=== PATIENT | female | born 1935 | race Native Hawaiian/Other Pacific Islander ===

== ENCOUNTER 2016-12-17 15:52 | Emergency (ER) | payer MEDICARE, OTHER ==
[2016-12-17] MEDS ORDERED: TDAP Vaccine 0.5 mL Syr IM ONE (16:01)
[2016-12-17 16:05] VITALS: TEMP 98.1; BMI 33.0
--- NOTE | 2016-12-17 16:27 | ED PDOC ---
Arrival/HPI - General Chief Complaint: Trauma Time Seen by Provider: 12/17/16 15:59 Historian: Patient, Family (Daughter translates) - History of Present Illness Time/Duration: Prior to Arrival Symptom Onset: Sudden Symptom Course: Unchanged Severity Level: Moderate Associated Symptoms (Text): 12/17/16 16:23 Mechanical fall when the patient thought she was on the last step, and actually had one more step to go. She hit her occiput on the corner of a wall causing a laceration. She also injured her left olecranon in the fall. There was no loss of consciousness syncope dizziness or lightheadedness numbness tingling or paresthesias. No neck pain. No low back pain. No chest pain palpitations or dyspnea. No abdominal pain nausea or vomiting. No other extremity trauma. Past Medical History - Cardiac Hx Cardiac Disorders: No - Pulmonary Hx Respiratory Disorders: No - Neurological Hx Neurological Disorder: No - HEENT Hx HEENT Disorder: No - Renal Hx Renal Disorder: No - Endocrine/Metabolic Hx Endocrine Disorders: No - Hematological/Oncological Hx Blood Disorders: No - Integumentary Hx Dermatological Disorder: No - Musculoskeletal/Rheumatological Hx Musculoskeletal Disorders: Yes Other/Comment: RT KNEE REPLACEMENT - Gastrointestinal Hx Gastrointestinal Disorders: No - Genitourinary/Gynecological Hx Genitourinary Disorders: No - Psychiatric Hx Psychophysiologic Disorder: Yes Hx Depression: Yes Hx Substance Use: No Other/Comment: DEMENTIA - Surgical History Hx Orthopedic Surgery: Yes (RT KNEE REPLACEMENT) Other/Comment: COLON RESECTION - Anesthesia Hx Anesthesia: Yes Hx Anesthesia Reactions: No Hx Malignant Hyperthermia: No Family/Social History - Physician Review Nursing Documentation Reviewed: Yes Family/Social History: Unknown Family HX Smoking Status: Never Smoked Hx Alcohol Use: No Hx Substance Use: No Allergies/Home Meds Allergies/Adverse Reactions: Allergies No Known Allergies Allergy (Verified 12/17/16 16:10) Home Medications: Home Meds Medication Instructions Recorded Confirmed Calcium 1 tab PO DAILY 06/11/15 06/11/15 Multivitamin 1 tab PO DAILY 06/11/15 06/11/15 Review of Systems - Physician Review All systems were reviewed & negative as marked: Yes - Review of Systems Constitutional: absent: Fatigue Respiratory: absent: SOB Cardiovascular: absent: Chest Pain, Palpitations, Syncope Gastrointestinal: absent: Abdominal Pain, Vomiting Neurological: Headache. absent: Dizziness, Focal Weakness, Gait Changes, Speech Changes, Facial Droop, Disequilibrium, Seizure Physical Exam Vital Signs Temp Pulse Resp BP Pulse Ox 12/17/16 16:05 98.1 F 78 25 H 114/51 L 96 12/17/16 16:04 98.1 F 78 25 H 114/51 L 96 Temperature: Afebrile Blood Pressure: Normal Pulse: Regular Respiratory Rate: Normal Appearance: Positive for: Well-Appearing, Non-Toxic, Comfortable Pain Distress: None Mental Status: Positive for: other (Awake alert and cooperative) - Systems Exam Head: Present: Normocephalic, Tenderness, Contusion, Swelling, Laceration (3 cm left occipital scalp laceration with foreign body) Pupils: Present: PERRL Extroacular Muscles: Present: EOMI Conjunctiva: Present: Normal Ears: Present: NORMAL TM, Normal Canal. No: Erythema Mouth: Present: Moist Mucous Membranes Pharnyx: No: ERYTHEMA, EXUDATE, TONSILS ENLARGED Neck: Present: Normal Range of Motion. No: MIDLINE TENDERNESS, Paraspinal Tenderness Respiratory/Chest: Present: Clear to Auscultation, Good Air Exchange. No: Respiratory Distress, Accessory Muscle Use Cardiovascular: Present: Regular Rate and Rhythm, Normal S1, S2. No: Murmurs Abdomen: Present: Normal Bowel Sounds. No: Tenderness, Distention, Peritoneal Signs Back: Present: Normal Inspection. No: CVA Tenderness, Midline Tenderness, Paraspinal Tenderness Upper Extremity: Present: Normal ROM, NORMAL PULSES, Tenderness, Other ( Superficial olecranon abrasion with some mild tenderness but full range of motion). No: Normal Inspection, Cyanosis, Edema, Swelling, Erythema, Neurovascularly Intact, Deformity Lower Extremity: Present: Normal Inspection. No: Edema Neurological: Present: GCS=15, CN II-XII Intact, Speech Normal, Motor Func Grossly Intact, Normal Cerebellar Funct, Gait Normal Skin: Present: Warm, Dry, Normal Color, Laceration (3 cm left occipital scalp laceration with a foreign body). No: Rashes Medical Decision Making ED Course and Treatment: 12/17/16 17:02 X-ray left elbow 3 view shows no fracture dislocation or fat pad sign 12/17/16 17:03 Laceration repair. The wound was prepped and draped in usual sterile fashion using Betadine and irrigated with normal saline solution. One percent with local lidocaine anesthesia was injected. A wooden foreign body was removed from the wound. The skin was closed with john. Sterile dressing was applied. Patient tolerated the procedure well. - RAD Interpretation Radiology Orders: 12/17/16 16:01 HEAD W/O CONTRAST [CT] Stat ELBOW LEFT 3 VIEWS ROUTINE [RAD] Stat CT scan of the head as read by the radiologist shows no acute findings Feed Crusher Operator: Radiologist - Medication Orders Current Medication Orders: Discontinued Medications Tetanus/Reduced Diphtheria/Acell Pertussis (Boostrix Vaccine Inj) 0.5 ml IM .ONCE ONE Stop: 12/17/16 16:02 Disposition/Present on Arrival - Present on Arrival Any Indicators Present on Arrival: No History of DVT/PE: No History of Uncontrolled Diabetes: No Urinary Catheter: No History of Decub. Ulcer: No History Surgical Site Infection Following: None - Disposition Have Diagnosis and Disposition been Completed?: Yes Diagnosis: Scalp laceration, Contusion of elbow, left Disposition: HOME/ ROUTINE Disposition Time: 17:05 Patient Plan: Discharge Condition: IMPROVED Discharge Instructions (ExitCare): Laceration (ED), Contusion in Adults (ED), Abrasion (ED), Head Injury (ED) Additional Instructions: Dry for 2 days. Wound check in 2 days. Staple removal in 10 days. Follow-up with PMD. Follow up in ER as needed.
--- NOTE | 2016-12-17 16:36 | CT ---
PROCEDURE: CT HEAD WITHOUT CONTRAST. HISTORY: trauma COMPARISON: None available. TECHNIQUE: Axial computed tomography images were obtained through the head/brain without intravenous contrast. Radiation dose: Total exam DLP = 779.14 MGy-cm. FINDINGS: HEMORRHAGE: No intracranial hemorrhage. BRAIN: Diffuse atrophy with prominence of the ventricles and sulci noted. No mass effect or edema. Mild scattered white matter hypodensities, which are nonspecific, but often seen with chronic microvascular ischemic disease. Please note that MRI with diffusion imaging is more sensitive in the detection of acute ischemic event. VENTRICLES: No hydrocephalus. CALVARIUM: Unremarkable. PARANASAL SINUSES: Extensive mucosal thickening of the left maxillary sinus. The remainder the visualized paranasal sinuses appear clear. MASTOID AIR CELLS: Unremarkable as visualized. No inflammatory changes. OTHER FINDINGS: Left scalp hematoma. IMPRESSION: Left scalp hematoma. Extensive mucosal thickening of the left maxillary sinus. Correlate clinically for sinusitis.
--- NOTE | 2016-12-17 16:54 | RAD ---
PROCEDURE: Radiographs of the left elbow. HISTORY: trauma COMPARISON: None available. FINDINGS: BONES: No acute displaced fracture. JOINTS: No dislocation. SOFT TISSUES: Unremarkable. No evidence of radiopaque foreign body. JOINT EFFUSION: No significant joint effusion. OTHER FINDINGS: None IMPRESSION: No acute displaced fracture, dislocation, or significant joint effusion identified. If high clinical index of suspicion, suggest cross-sectional imaging. Otherwise if symptoms persist, or if there is continued clinical concern, x-ray follow-up in 7-10 days should be considered.
[2016-12-17 17:19] VITALS: PULSE 73; RESP 20; O2SAT 98
[2016-12-17 17:20] VITALS: BP 146/78
== END 2016-12-17 17:25 | disposition home or self-care (01) ==
LOC: ED 15:52
DX: S01.01XA Laceration without foreign body of scalp, initial encounter (principal); S50.02XA Contusion of left elbow, initial encounter; W10.9XXA Fall (on) (from) unspecified stairs and steps, initial encounter; Z23 Encounter for immunization

== ENCOUNTER 2016-12-27 10:11 | Emergency (ER) | payer MEDICARE, OTHER ==
[2016-12-27 10:14] VITALS: BMI 32.1
[2016-12-27 10:17] VITALS: BP 128/63; PULSE 85; RESP 16; TEMP 98; O2SAT 95
--- NOTE | 2016-12-27 10:29 | ED PDOC ---
Arrival/HPI - General Chief Complaint: Suture/Staple Removal Time Seen by Provider: 12/27/16 10:23 Historian: Patient, Family - History of Present Illness Narrative History of Present Illness (Text): 12/27/16 10:24 81 y/o female, here for the staple removal x 10 days. Pt. has no pain or discomfort, no headache or dizziness, no night sweat, no numbness or tingling, no other medical or psychological complaints. Past Medical History - Provider Review Nursing Documentation Reviewed: Yes - Cardiac Hx Cardiac Disorders: No - Pulmonary Hx Respiratory Disorders: No - Neurological Hx Neurological Disorder: No - HEENT Hx HEENT Disorder: No - Renal Hx Renal Disorder: No - Endocrine/Metabolic Hx Endocrine Disorders: No - Hematological/Oncological Hx Blood Disorders: No - Integumentary Hx Dermatological Disorder: No - Musculoskeletal/Rheumatological Hx Musculoskeletal Disorders: Yes Other/Comment: RT KNEE REPLACEMENT - Gastrointestinal Hx Gastrointestinal Disorders: No - Genitourinary/Gynecological Hx Genitourinary Disorders: No - Psychiatric Hx Psychophysiologic Disorder: Yes Hx Depression: Yes Hx Substance Use: No Other/Comment: DEMENTIA - Surgical History Hx Orthopedic Surgery: Yes (RT KNEE REPLACEMENT) Other/Comment: COLON RESECTION - Anesthesia Hx Anesthesia: Yes Hx Anesthesia Reactions: No Hx Malignant Hyperthermia: No Family/Social History - Physician Review Nursing Documentation Reviewed: Yes Family/Social History: Unknown Family HX Smoking Status: Never Smoked Hx Alcohol Use: No Hx Substance Use: No Allergies/Home Meds Allergies/Adverse Reactions: Allergies No Known Allergies Allergy (Verified 12/27/16 10:14) Home Medications: Home Meds Medication Instructions Recorded Confirmed No Known Home Med 12/27/16 12/27/16 Review of Systems - Review of Systems Constitutional: absent: Fatigue, Fevers Eyes: absent: Vision Changes ENT: absent: Hearing Changes Cardiovascular: absent: Chest Pain Gastrointestinal: absent: Abdominal Pain, Nausea, Vomiting Skin: absent: Rash, Pruritis, Skin Lesions, Abscess, Ulcer, Cellulitis Neurological: absent: Headache, Dizziness, Focal Weakness, Gait Changes, Speech Changes, Facial Droop, Disequilibrium, Seizure Physical Exam Vital Signs Reviewed: Yes Vital Signs Temp Pulse Resp BP Pulse Ox 12/27/16 10:12 98.0 F 85 16 128/63 95 Temperature: Afebrile Blood Pressure: Normal Pulse: Regular Respiratory Rate: Normal Appearance: Positive for: Well-Appearing, Non-Toxic, Comfortable Pain Distress: None Mental Status: Positive for: Alert and Oriented X 3 - Systems Exam Head: Present: Laceration (visible lt posterior occipital with 6 staple wound with completely healed and scar. ) Pupils: Present: PERRL Extroacular Muscles: Present: EOMI Conjunctiva: Present: Normal Ears: Present: NORMAL TM, Normal Canal. No: Erythema Cardiovascular: Present: Regular Rate and Rhythm, Normal S1, S2. No: Murmurs Abdomen: Present: Normal Bowel Sounds. No: Tenderness, Distention, Peritoneal Signs Neurological: Present: GCS=15, Speech Normal, Motor Func Grossly Intact, Gait Normal, Memory Normal Medical Decision Making ED Course and Treatment: 12/27/16 10:30 6 john removed with success, checked and no further staple noted. Discharge home with education on follow up with your own pmd within 2 days, return to ER for any new or worsening signs or symptoms. - PA / UPPER STITCHER / Resident Statement MD/DO has reviewed & agrees with the documentation as recorded. Disposition/Present on Arrival - Present on Arrival Any Indicators Present on Arrival: No History of DVT/PE: No History of Uncontrolled Diabetes: No Urinary Catheter: No History of Decub. Ulcer: No History Surgical Site Infection Following: None - Disposition Have Diagnosis and Disposition been Completed?: Yes Diagnosis: Removal of john Disposition: HOME/ ROUTINE Disposition Time: 10:31 Patient Plan: Discharge Condition: GOOD Additional Instructions: Discharge home with education on follow up with your own pmd within 2 days, return to ER for any new or worsening signs or symptoms. Referrals: [facility] at [facility] [Outside] - Follow up with primary
== END 2016-12-27 11:09 | disposition home or self-care (01) ==
LOC: ED 10:11
DX: Z48.02 Encounter for removal of sutures (principal)

== ENCOUNTER 2017-04-23 10:09 | Observation (INO) | payer MEDICARE, OTHER ==
[2017-04-23 11:06] LABS: BASO # 0.02 K/mm3 (0.0-2.0); BASO % 0.3 % (0.0-3.0); EOS # 0.3 (0.0-0.7); EOS % 4.6 % (1.5-5.0); GRAN # 4.09 (1.4-6.5); GRAN % 57.4 % (50.0-68.0); HEMOGLOBIN 13.7 gm/dL (12.0-16.0); LYMPH # 2.3 (1.2-3.4); LYMPH % 32.4 % (22.0-35.0); MEAN CELL VOLUME 93.6 fL (80.0-105.0); MEAN CORPUSCULAR HEMOGLOBIN 31.2 pg (25.0-35.0); MEAN CORPUSCULAR HGB CONC 33.3 g/dl (31.0-37.0); MEAN PLATELET VOLUME 9.8 fl (7.0-11.0); MONO # 0.4 (0.1-0.6); MONO % 5.3 % (1.0-6.0); PLATELET COUNT 301 10^3/uL (120.0-450.0); RBC 4.39 10^6/uL (3.5-6.1); RED CELL DISTRIBUTION WIDTH 12.7 % (11.5-14.5); WHITE BLOOD COUNT 7.1 10^3/ul (4.5-11.0)
[2017-04-23 11:19] LABS: INR 1.01 (0.93-1.08); PARTIAL THROMBOPLASTIN TIME 32.6 Seconds (23.7-30.8); PROTHROMBIN TIME 10.9 Seconds (9.9-11.8)
[2017-04-23 11:21] LABS: ALB/GLOB RATIO 1.1 (1.1-1.8); ALBUMIN 4.4 g/dL (3.0-4.8); ALT/SGPT 20 U/L (7-56); AST/SGOT 27 U/L (15-39); BLOOD UREA NITROGEN 16 mg/dL (7-21); GFR AFRICAN-AMERICAN > 60; GFR NON-AFRICAN AMERICAN > 60
[2017-04-23 11:33] LABS: TROPONIN I < 0.01 ng/mL
--- NOTE | 2017-04-23 11:53 | RAD ---
HISTORY: dizziness COMPARISON: No prior. FINDINGS: LUNGS: No active pulmonary disease. PLEURA: No significant pleural effusion identified, no pneumothorax apparent. CARDIOVASCULAR: Normal. OSSEOUS STRUCTURES: No significant abnormalities. VISUALIZED UPPER ABDOMEN: Normal. OTHER FINDINGS: None. IMPRESSION: No active disease.
[2017-04-23 13:18] LABS: PH,URINE 6.5 (4.7-8.0); URINE BILIRUBIN NEGATIVE (NEGATIVE); URINE BLOOD NEGATIVE (NEGATIVE); URINE GLUCOSE (UA) NEGATIVE (NEGATIVE); URINE LEUKOCYTE ESTERASE TRACE Leu/uL (NEGATIVE); URINE NITRATE NEGATIVE (NEGATIVE); URINE PROTEIN NEGATIVE mg/dL (<30 mg/dL); URINE UROBILINOGEN 0.2 E.U./dL (<1 E.U./dL)
[2017-04-23 13:25] LABS: URINE APPEARANCE CLEAR (CLEAR); URINE BACTERIA TRACE (NEG); URINE COLOR YELLOW (YELLOW); URINE EPITHELIAL CELLS 0 - 2 /hpf (0-5); URINE RBC 0 - 2 /hpf (0-2)
--- NOTE | 2017-04-23 15:07 | CT ---
PROCEDURE: CT HEAD WITHOUT CONTRAST. HISTORY: headache, htn COMPARISON: 12/17/2016 TECHNIQUE: Axial computed tomography images were obtained through the head/brain without intravenous contrast. Radiation dose: Total exam DLP = 725.84 mGy-cm. This CT exam was performed using one or more of the following dose reduction techniques: Automated exposure control, adjustment of the mA and/or kV according to patient size, and/or use of iterative reconstruction technique. FINDINGS: HEMORRHAGE: No intracranial hemorrhage. BRAIN: No mass effect or edema. Mild to moderate diffuse atrophy consistent with patient age. Mild periventricular white matter microvascular ischemic change. No evidence of acute infarct. VENTRICLES: Unremarkable. No hydrocephalus. CALVARIUM: Unremarkable. PARANASAL SINUSES: Minimal left maxillary mucoperiosteal thickening. Only a small portion of the maxillary sinuses are included in this examination MASTOID AIR CELLS: Unremarkable as visualized. No inflammatory changes. OTHER FINDINGS: None. IMPRESSION: No intracranial mass, hemorrhage or evidence of acute infarct. Minimal chronic left maxillary sinusitis.
--- NOTE | 2017-04-23 16:08 | ED PDOC ---
Arrival/HPI - General Chief Complaint: Medical Clearance Time Seen by Provider: 04/23/17 10:28 Historian: Patient, Family - History of Present Illness Narrative History of Present Illness (Text): 04/23/17 16:05 Patient is a 81 yo female, denies past medical history of hypertension, presents to ED from local clinic reportedly with "abnormal EKG" as well as episodes of headaches and dizziness over the past several weeks. Family present and translates. They state for the past several morning patient awakes and feels very lightheaded, dizzy with gait instability, sensation that she may fall or pass out. Family states this has progressively worsened and brought her to clinic earlier in week where she was found to be hypertensive, although patient not medicated reportedly as she felt better at the time. She presented to clinic this AM again for episode of unsteadiness, reportedly SBP was "in 190s " and she was unsteady. Patient denies chest pain or shortness of breath or palpitations. She does have an associated frontal headache, but not the worst in her life. No fever. No cough. No abdominal pain. Normal appetite. No change in medications. Time/Duration: 1 week Symptom Onset: Gradual Symptom Course: Intermittent Past Medical History - Infectious Disease Hx of Infectious Diseases: None - Reproductive Menopause: Yes - Cardiac Hx Cardiac Disorders: No - Pulmonary Hx Respiratory Disorders: No - Neurological Hx Neurological Disorder: No - HEENT Hx HEENT Disorder: No - Renal Hx Renal Disorder: No - Endocrine/Metabolic Hx Endocrine Disorders: No - Hematological/Oncological Hx Blood Disorders: No - Integumentary Hx Dermatological Disorder: No - Musculoskeletal/Rheumatological Hx Musculoskeletal Disorders: Yes Other/Comment: RT KNEE REPLACEMENT - Gastrointestinal Hx Gastrointestinal Disorders: Yes Other/Comment: colon ca had chemo 5 yrs ago - Genitourinary/Gynecological Hx Genitourinary Disorders: No - Psychiatric Hx Psychophysiologic Disorder: Yes Hx Depression: Yes Hx Substance Use: No Other/Comment: DEMENTIA - Surgical History Hx Orthopedic Surgery: Yes (RT KNEE REPLACEMENT) Other/Comment: COLON RESECTION - Anesthesia Hx Anesthesia: Yes Hx Anesthesia Reactions: No Hx Malignant Hyperthermia: No Family/Social History Family/Social History: Unknown Family HX Smoking Status: Never Smoked Hx Alcohol Use: No Hx Substance Use: No Allergies/Home Meds Allergies/Adverse Reactions: Allergies No Known Allergies Allergy (Verified 12/27/16 10:14) Home Medications: Home Meds Medication Instructions Recorded Confirmed Omeg3/Calcium/D3/Folic/Mvit 13 1 tab PO HS 04/23/17 04/23/17 [Advanced Am/Pm Combo Pack] Review of Systems - Review of Systems Systems not reviewed;Unavailable: Language Barrier (daughter present translates in Mandarin with permission) Constitutional: absent: Fevers Eyes: absent: Vision Changes ENT: absent: Hearing Changes Respiratory: absent: SOB, Cough Cardiovascular: Other (near syncope). absent: Chest Pain, Palpitations, Edema Gastrointestinal: absent: Abdominal Pain, Nausea, Vomiting Genitourinary Female: absent: Dysuria Musculoskeletal: absent: Back Pain, Neck Pain Skin: absent: Rash Neurological: Headache, Dizziness, Gait Changes, Disequilibrium. absent: Focal Weakness, Seizure Endocrine: absent: Polyuria Hemo/Lymphatic: absent: Easy Bleeding Psychiatric: absent: Depression Physical Exam Vital Signs Reviewed: Yes Vital Signs Pulse Resp BP Pulse Ox 04/23/17 15:22 72 16 155/74 H 96 04/23/17 13:16 71 16 151/65 H 97 04/23/17 12:39 72 16 179/88 H 97 04/23/17 10:30 186/81 H Temperature: Afebrile Blood Pressure: Hypertensive Appearance: Positive for: Well-Appearing, Non-Toxic Pain Distress: Moderate Mental Status: Positive for: Alert and Oriented X 3 Finger Stick Blood Glucose: 107 - Systems Exam Head: Present: Atraumatic Pupils: Present: PERRL Extroacular Muscles: Present: EOMI Mouth: Present: Moist Mucous Membranes Pharnyx: No: ERYTHEMA Nose (Internal): Present: Normal Inspection Neck: Present: Normal Range of Motion. No: Meningeal Signs Respiratory/Chest: Present: Clear to Auscultation. No: Respiratory Distress Cardiovascular: Present: Regular Rate and Rhythm, Murmurs Abdomen: No: Tenderness, Distention Back: No: CVA Tenderness Upper Extremity: No: Cyanosis, Edema Lower Extremity: Present: Edema, NORMAL PULSES, Neurovascularly Intact. No: CALF TENDERNESS Neurological: Present: Speech Normal, Motor Func Grossly Intact, Normal Sensory Function. No: Gait Normal Skin: Present: Warm Psychiatric: Present: Alert Medical Decision Making ED Course and Treatment: 04/23/17 16:12 Patient's history supplemented by family who translates. Patient sent by clinic for "abnormal EKG", although review of previous available records reveal right bundle branch block has been noted previously, and she has no chest pain or shortness of breath. She is hypertensive on arrival to ED, but no facial droop or focal motor or sensory deficits. Family and patient deny any known prior history of hypertension, she does not take meds. CT head obtained for intermittent headaches and dizziness, ct head unremarkable as per radiologist. With observation, patient's blood pressure improved to SBP 150s, patient's headache and dizziness improved. Family reports worsening episodes for past several weeks, plan to admit for BP monitoring as well as cardiac and neurological consultation for episodes of unsteadiness and near syncope. Treatment plan reviewed with patient and family, agreeable to plan. Dr. Luna covering for patient's states PMD Dr. Mendoza. - Lab Interpretations Lab Results: 04/23/17 11:00 04/23/17 11:00 Lab Results 04/23/17 13:12: Urine Color Yellow, Urine Appearance Clear, Urine pH 6.5, Ur Specific [place] 1.020, Urine Protein Negative, Urine Glucose (UA) Negative, Urine Ketones Negative, Urine Blood Negative, Urine Nitrate Negative, Urine Bilirubin Negative, Urine Urobilinogen 0.2, Ur Leukocyte Esterase Trace H, Urine RBC 0 - 2, Urine WBC 1 - 3, Ur Epithelial Cells 0 - 2, Urine Bacteria Trace 04/23/17 11:00: Sodium 142, Potassium 4.0, Chloride 106, Carbon Dioxide 25, Anion Gap 15, BUN 16, Creatinine 0.7, Est GFR ( Amer) > 60, Est GFR (Non- Af Amer) > 60, Random Glucose 92, Calcium 10.0, Total Bilirubin 0.7, AST 27, ALT 20, Alkaline Phosphatase 105, Lactate Dehydrogenase 517, Total Creatine Kinase 46, Troponin I < 0.01, Total Protein 8.2, Albumin 4.4, Globulin 3.9, Albumin/Globulin Ratio 1.1 04/23/17 11:00: PT 10.9, INR 1.01, APTT 32.6 H 04/23/17 11:00: WBC 7.1, RBC 4.39, Hgb 13.7, Hct 41.1, MCV 93.6, MCH 31.2, MCHC 33.3, RDW 12.7, Plt Count 301, MPV 9.8, Gran % 57.4, Lymph % (Auto) 32.4, [place] % (Auto) 5.3, Eos % (Auto) 4.6, Baso % (Auto) 0.3, Gran # 4.09, Lymph # 2.3, [place] # 0.4, Eos # 0.3, Baso # 0.02 04/23/17 10:56: POC Glucose (mg/dL) 107 - RAD Interpretation Radiology Orders: 04/23/17 10:29 CHEST PORTABLE [RAD] Stat 04/23/17 12:33 HEAD W/O CONTRAST [CT] Stat Certified Phlebotomy Technician: Radiologist - EKG Interpretation EKG Interpretation (Text): 04/23/17 16:11 EKG at 10:17 reveals normal sinus rhythm rate of 65 with right bundle branch block THIS EKG similar to EKG obtained on 08/31/2015 Interpreted by ED Physician: Yes Type: 12 lead EKG - Medication Orders Current Medication Orders: Meclizine HCl (Antivert) 25 mg PO ONCE ONE Stop: 04/23/17 16:01 Disposition/Present on Arrival - Present on Arrival Any Indicators Present on Arrival: No History of DVT/PE: No History of Uncontrolled Diabetes: No Urinary Catheter: No History of Decub. Ulcer: No History Surgical Site Infection Following: None - Disposition Have Diagnosis and Disposition been Completed?: Yes Diagnosis: Near syncope, Hypertension Disposition: HOSPITALIZED Disposition Time: 14:00 Patient Plan: Admission, Observation, Telemetry Condition: FAIR
[2017-04-23 18:07] VITALS: BMI 34.0
--- NOTE | 2017-04-23 22:30 | CARD ---
APPROVED REPORT EKG Measurement Heart [id number] <Conclusion> Normal sinus rhythm Right bundle branch block Inferior infarct, age undetermined Abnormal ECG
[2017-04-24 00:07] VITALS: O2SAT 96
--- NOTE | 2017-04-24 08:59 | CP.PCM.CON ---
<Michael Boland - Last Filed: 04/24/17 08:49> History of Present Illness - History of Present Illness History of Present Illness: This is a 81 year old female with PMHx colon cancer s/p chemotherapy and hemicolectomy who comes into the ED complaining of headaches and dizziness for the past few weeks. History taken from daughter at bedside since patient speaks only Mandarin. Patient is known to have headaches intermittently when her blood pressure is elevated. Her baseline SBP runs in the 110s. Over the course of the past week, patient has been intermittently hypertensive as evidenced by blood pressures taken at home and at an urgent care clinic. When the urgent care clinic found her SBP to be in the 190s, they advised the patient to come into the hospital. Patient has been complaining of frontal headaches that "feel like she's wearing a hat" with scintillating scotomas. With these episodes of transient hypertension, patient also feels dizzy and unsteady but denies feeling that the room is spinning. As patient's BP improved overnight, her headache and dizziness have gradually decreased in severity. This morning the patient only complains of slight dizziness. Of note, the patient had a fall about 3 weeks ago and went to the urgent care clinic where on Xray was found to have injuries to several lumbar vertebrae. Since the injury she has had intermittent episodes of low back pain with radiation down the right leg. At the time of encounter, patient was not currently in pain or experiencing paresthesias. PMHx: Colon cancer s/p chemotherapy and hemicolectomy 5 years ago PSHx: Hemicolectomy and right TKA Allergies: NKDA Social: Denies tobacco, alcohol, drugs. Home meds: Denies. Only takes vitamin supplements. Review of Systems - Constitutional Constitutional: absent: Headache, Weakness - EENT Eyes: absent: Change in Vision Ears: absent: Decreased Hearing - Cardiovascular Cardiovascular: absent: Chest Pain - Respiratory Respiratory: absent: Dyspnea - Gastrointestinal Gastrointestinal: absent: Abdominal Pain, Nausea, Vomiting - Genitourinary Genitourinary: absent: Dysuria - Musculoskeletal Musculoskeletal: absent: Back Pain - Neurological Neurological: Dizziness. absent: Numbness, Headaches, Tingling, Vertigo, Weakness - Endocrine Endocrine: absent: Palpitations Past Patient History - Infectious Disease Hx of Infectious Diseases: None - Past Medical History & Family History Past Medical History?: Yes - Past Social History Smoking Status: Never Smoked - CARDIAC Hx Cardiac Disorders: No - PULMONARY Hx Respiratory Disorders: No - NEUROLOGICAL Hx Neurological Disorder: No - HEENT Hx HEENT Problems: No - RENAL Hx Chronic Kidney Disease: No - ENDOCRINE/METABOLIC Hx Endocrine Disorders: No - HEMATOLOGICAL/ONCOLOGICAL Hx Blood Disorders: No - INTEGUMENTARY Hx Dermatological Problems: No - MUSCULOSKELETAL/RHEUMATOLOGICAL Hx Falls: Yes - GASTROINTESTINAL Hx Gastrointestinal Disorders: Yes Other/Comment: colon ca had chemo 5 yrs ago - GENITOURINARY/GYNECOLOGICAL Hx Genitourinary Disorders: No - PSYCHIATRIC Hx Psychophysiologic Disorder: Yes Hx Depression: Yes Other/Comment: DEMENTIA - SURGICAL HISTORY Hx Orthopedic Surgery: Yes (RT KNEE REPLACEMENT) Other/Comment: COLON RESECTION - ANESTHESIA Hx Anesthesia: Yes Hx Anesthesia Reactions: No Hx Malignant Hyperthermia: No Meds Allergies/Adverse Reactions: Allergies Allergy/AdvReac Type Severity Reaction Status Date / Time No Known Allergies Allergy Verified 12/27/16 10:14 - Medications Medications: Current Medications Amoxicillin/Clavulanate Potassium (Augmentin 500 Mg-125 Mg Tab) 1 tab PO BID NINA PRN Reason: Protocol Physical Exam - Constitutional Appears: Non-toxic, No Acute Distress - Head Exam Head Exam: ATRAUMATIC, NORMAL INSPECTION, NORMOCEPHALIC - Eye Exam Eye Exam: EOMI, PERRL - ENT Exam ENT Exam: Mucous Membranes Moist - Respiratory Exam Respiratory Exam: Clear to Auscultation Bilateral - Cardiovascular Exam Cardiovascular Exam: REGULAR RHYTHM - GI/Abdominal Exam GI & Abdominal Exam: Normal Bowel Sounds - Neurological Exam Neurological exam: Alert, CN II-XII Intact, Oriented x3, Reflexes Normal Additional comments: Manual muscle strength testing 5/5 bilateral upper and lower extremities. Sensation to light touch intact bilateral uper and lower extremities. No pronator drift. Down going plantar responses. Normal finger to nose test. Patient with difficulty following directions at times. Results - Vital Signs Recent Vital Signs: Last Vital Signs Temp 98.5 F 04/24/17 06:00 Pulse 71 04/24/17 06:00 Resp 20 04/24/17 06:00 BP 138/80 04/24/17 06:00 Pulse Ox 96 04/24/17 06:00 - Labs Result Diagrams: 04/23/17 11:00 04/23/17 11:00 Assessment & Plan - Assessment and Plan (Free Text) Assessment: This is a 81 year old female with PMHx colon cancer s/p chemotherapy and hemicolectomy who comes into the ED complaining of headaches and dizziness for the past few weeks. The headaches and dizziness were likely due to episodes of hypertensive urgency. CT Head was negative for acute ischemic or hemorrhagic changes. Plan: 1) Avoid hypertensive and hypotensive episodes 2) Maintain SBP 130-140 mmHg. 3) Maintain adequate hydration. 4) Monitor and correct electrolytes. 5) Avoid sedating medications. 6) Follow up MRI brain 7) Follow up carotid ultrasound Patient is neurologically stable. Will discuss case with Dr. Brenna Boland, PGY-1 - Date & Time Date: 04/24/17 Time: 07:30 <Cody Ceja - Last Filed: 04/24/17 10:09> Meds - Medications Medications: Current Medications Amoxicillin/Clavulanate Potassium (Augmentin 500 Mg-125 Mg Tab) 1 tab PO BID NINA PRN Reason: Protocol Results - Vital Signs Recent Vital Signs: Last Vital Signs Temp 98.5 F 04/24/17 06:00 Pulse 71 04/24/17 06:00 Resp 20 04/24/17 06:00 BP 138/80 04/24/17 06:00 Pulse Ox 96 04/24/17 06:00 - Labs Result Diagrams: 04/23/17 11:00 04/24/17 09:00 Labs: Laboratory Results - last 24 hr 04/24/17 09:00 Sodium 143 Potassium 4.2 Chloride 103 Carbon Dioxide 30 Anion Gap 14 BUN 14 Creatinine 0.8 Est GFR ( Amer) > 60 Est GFR (Non-Af Amer) > 60 Random Glucose 138 H Calcium 10.3 Total Bilirubin 0.7 AST 31 ALT 30 Alkaline Phosphatase 91 Total Protein 8.3 Albumin 4.4 Globulin 3.9 Albumin/Globulin Ratio 1.1 Attending/Attestation - Attestation I have personally seen and examined this patient.: Yes I have fully participated in the care of the patient.: Yes I have reviewed all pertinent clinical information: Yes
[2017-04-24 09:52] LABS: ALB/GLOB RATIO 1.1 (1.1-1.8); ALBUMIN 4.4 g/dL (3.0-4.8); ALT/SGPT 30 U/L (7-56); AST/SGOT 31 U/L (15-39); BLOOD UREA NITROGEN 14 mg/dL (7-21); CALCIUM 10.3 mg/dL (8.4-10.5); GFR AFRICAN-AMERICAN > 60; GFR NON-AFRICAN AMERICAN > 60
[2017-04-24] MEDS: Amoxicillin-Clav 500-125 mg Tab PO SCH ×2 (10:30→17:30)
--- NOTE | 2017-04-24 11:36 | US ---
PROCEDURE: Bilateral carotid artery duplex ultrasound HISTORY: Carotid stenosis dizziness PHYSICIAN(S): Fede Nichols MD. TECHNIQUE: Duplex sonography and color-flow Doppler were used to evaluate the carotid bifurcations and limited segments of the vertebral arteries bilaterally. FINDINGS: There is mild smooth hypoechoic plaque noted at the carotid bifurcations bilaterally. The peak systolic velocity in the proximal right internal carotid artery is 63 cm/sec. This corresponds to a 20 to 39% proximal right ICA stenosis. Normal systolic velocities are noted in the proximal right external carotid artery. There is antegrade flow in the right vertebral artery. The peak systolic velocity in the proximal left internal carotid artery is 60 cm/sec. This corresponds to a 20 to 39% proximal left ICA stenosis. Normal systolic velocities are noted in the proximal left external carotid artery. There is antegrade flow in the left vertebral artery. IMPRESSION: 1. Bilateral 20-39% proximal ICA stenoses. 2. Antegrade flow in both vertebral arteries.
[2017-04-24 12:48] VITALS: BP 128/74; PULSE 75; RESP 16; TEMP 97.9
--- NOTE | 2017-04-24 13:46 | CON ---
DATE: 04/24/2017 HISTORY OF PRESENT ILLNESS: The patient is a 81-year-old woman who presents with dizziness and near syncope. PAST MEDICAL HISTORY: Free of cardiac history. She was noted to have a transient elevated blood pressure but since being monitored has been stable in the hospital. The patient complains of intermittent dizziness and occasional weakness. No diabetes mellitus. No hypertension. MEDICATIONS: The patient is on no significant medications at home. SOCIAL HISTORY: The patient does not smoke. REVIEW OF SYSTEMS: Fourteen-point review of systems was reviewed in detail. No cardiac symptomatology is noted. PHYSICAL EXAMINATION: VITAL SIGNS: Blood pressure is 138/80, the heart rate in the 60s. NECK: Negative JVD. LUNGS: Without rales. HEART: S1 and S2. EXTREMITIES: Without edema. The EKG shows a right bundle-branch block, normal sinus rhythm. Hemoglobin is 13.7. Chemistries showed troponins that are negative. IMPRESSION: 1. Near syncope. 2. Dizziness. 3. Transient hypertension. 4. Weakness. Given these findings, I have discussed this with the patient as well as the daughter by telephone. At this point, there is no antihypertensive medications that are necessary. If cleared with neurology, the patient can be discharged from a cardiac perspective. We will arrange for an outpatient stress test and echocardiogram. I have discussed this with the patient and family. Fede Verde MD
--- NOTE | 2017-04-24 21:10 | HP ---
HISTORY OF PRESENT ILLNESS: I saw her resting comfortably in bed this morning with family present. She has a history of dizziness status post fall, went to [facility], was told she had fractured vertebrae. She has been doing okay, but the blood pressure has been high at home then she got dizzy and they brought her to the emergency room. This is a 81-year-old female with past medical history of hypertension, not on any medication, comes in with some dizziness and headaches, high blood pressure at home, was seen by [facility] couple of weeks ago for fall and was told she had fractured ribs, but no real back pain. She is walking well. No chest paint, no shortness of breath, or abdominal pain at this time. PAST MEDICAL HISTORY: Menopause. She had a right knee replacement, colon cancer, had chemo five years ago, questionable history of dementia. depression, right knee replacement, and colon resection. FAMILY HISTORY: Unknown family history. SOCIAL HISTORY: She never smoked. No alcohol. No drugs. ALLERGIES: NO KNOWN DRUG ALLERGIES. MEDICATION: She takes vitamin, Minier 3, multivitamin pill and no blood pressure medications presently. REVIEW OF SYSTEMS: No vision changes. No hearing changes. No sore throat, No neck pain. No chest pain. No palpitation. No shortness of breath. No coughing. No nausea, vomiting, constipation or diarrhea. No back pain at this time even no neck pain. No problems urinating. Skin; no rashes or ulcers or redness or lesions, There was a little bit of headache and dizziness, but that is better. There was disequilibrium, that is better. No focal problems at this time. No seizures. No problems urinating. At this time, not depressed, not anxious, no easy bleeding, comfortable. PHYSICAL EXAMINATION VITAL SIGNS: She has a 72 pulse, 16 respiratory rate, blood pressure down to 130/78,97% O2 sat on room air. HEENT: Head is atraumatic and normocephalic. She is well appearing, nontoxic. Alert and oriented x3. Extraocular muscles are intact. Pupils are reactive to light. Throat is clear, moist. No erythema. NECK: Supple. No JVD. HEART: Regular rate. LUNGS: Decreased breath sounds. Clear to auscultation. No wheezes, rhonchi, or rales. ABDOMEN: Soft and nontender. Positive bowel sounds. No guarding. No rebound. No CVA tenderness. EXTREMITIES: No edema. NEUROLOGIC: She is intact. Cranial nerves II though XII intact. Normal speech. SKIN: Warm and dry. THYROID: Midline. No palpable appreciated lymphadenopathy. She is alert and comfortably family is very concerned that she might have a bleed in the brain that was happened to the son-in-law's mother. LABORATORY DATA: We have a urine that is clear, trace leukocytes. 142 sodium, potassium 4, BUN 16, creatinine 0.7. GFR is greater than 60, sugar is 92, calcium 10, total bilirubin 0.7, AST is 27 and ALT is 20, alkaline phosphatase 105, lactate dehydrogenase is 517, troponin is less than 0.01. Total protein is 8.2, albumin is 4.4, globulin 3.9, INR is 1.01, She has a 7.1 white count, 13.7 hemoglobin, 41.1 hematocrit and 301 platelets. ASSESSMENT AND PLANT: She had a CAT scan of the head, which showed no intracranial mass, hemorrhage, or evidence of acute infarct and little more chronic left back sinusitis. She had a chest x-ray and EKG. EKG showed normal sinus rhythm, right bundle branch block inferior infarct, age undetermined. She had a chest x-ray with no active disease. I called in a consult for Neurology for their opinion. I put in order for carotid and vertebral ultrasounds and MRI of the brain and security and privacy consultant, physical therapy and Augmentin for the sinusitis. well. I put a discharge in for 3 o'clock this afternoon, hopefully the MRI, the ultrasound will be okay. The blood pressure stayed fine. She will have a consult with neuro and cardio and hopefully she is okay and clinically she is improved and hopefully, she will be discharged today this afternoon with these tests done. She is on observation status, She is here for dizziness, hypertension and sinusitis. I discussed with the family at length. Rigoberto Mendoza DO [facility]ITAL[facility]evae[facility]
== END 2017-04-24 18:55 | disposition home or self-care (01) ==
LOC: ED 10:09 → ERH 16:16 → 2RNO 17:42
PROVIDERS: ADMIT Family Medicine; ATTEND Family Medicine
DX: I10 Essential (primary) hypertension (principal); R55 Syncope and collapse; F03.90 Unspecified dementia, unspecified severity, without behavioral disturbance, psychotic disturbance, mood disturbance, and anxiety; R53.1 Weakness; R42 Dizziness and giddiness; J32.9 Chronic sinusitis, unspecified; Z85.038 Personal history of other malignant neoplasm of large intestine; Z92.21 Personal history of antineoplastic chemotherapy; Z96.651 Presence of right artificial knee joint; Z90.49 Acquired absence of other specified parts of digestive tract
CPT/HCPCS: 36415; 70450; 71010; 80053; 81001; 82550; 82948; 83615; 84484; 85025; 85610; 85730; 87086; 93005; 93880; 97116; 97162; 99285; G0378; G8978; G8979; G8980

== ENCOUNTER 2017-05-08 17:17 | Observation (INO) | payer MEDICARE, OTHER ==
--- NOTE | 2017-05-08 18:12 | ED PDOC ---
Arrival/HPI - General Chief Complaint: High Blood Pressure Time Seen by Provider: 05/08/17 17:46 Historian: Patient - History of Present Illness Narrative History of Present Illness (Text): 05/08/17 18:09 81 y/o female, pmh including htn, nkda, c/o dizziness/nausea/headache s/p woke up this morning around 4-5am with no fall or trauma. Pt. stated that she was feeling well prior to the sleep last night, woke up this morning around 4-5am with the dizziness along with nausea and headache, feeling like about to pass out, no change in vision, no vomiting, no chest pain or shortness of breath, admits on and off coughing for the past 2 days, no diarrhea, no recent traveling , no other medical or psychological complaints. Past Medical History - Provider Review Nursing Documentation Reviewed: Yes - Infectious Disease Hx of Infectious Diseases: None - Cardiac Hx Cardiac Disorders: No - Pulmonary Hx Respiratory Disorders: No - Neurological Hx Neurological Disorder: No - HEENT Hx HEENT Disorder: No - Renal Hx Renal Disorder: No - Endocrine/Metabolic Hx Endocrine Disorders: No - Hematological/Oncological Hx Blood Disorders: No - Integumentary Hx Dermatological Disorder: No - Musculoskeletal/Rheumatological Hx Arthritis: Yes - Gastrointestinal Hx Gastrointestinal Disorders: Yes Other/Comment: colon ca had chemo 5 yrs ago - Genitourinary/Gynecological Hx Genitourinary Disorders: No - Psychiatric Hx Psychophysiologic Disorder: Yes Hx Depression: Yes Hx Substance Use: No Other/Comment: DEMENTIA - Surgical History Hx Orthopedic Surgery: Yes (RT KNEE REPLACEMENT) Other/Comment: COLON RESECTION - Anesthesia Hx Anesthesia: Yes Hx Anesthesia Reactions: No Hx Malignant Hyperthermia: No Family/Social History - Physician Review Nursing Documentation Reviewed: Yes Family/Social History: Unknown Family HX Smoking Status: Never Smoked Hx Alcohol Use: No Hx Substance Use: No Allergies/Home Meds Allergies/Adverse Reactions: Allergies No Known Allergies Allergy (Verified 12/27/16 10:14) Home Medications: Home Meds Medication Instructions Recorded Confirmed Omeg3/Calcium/D3/Folic/Mvit 13 1 tab PO HS 04/23/17 05/08/17 [Advanced Am/Pm Combo Pack] Review of Systems - Review of Systems Constitutional: absent: Fatigue, Fevers Eyes: absent: Vision Changes ENT: absent: Hearing Changes Respiratory: Cough. absent: SOB, Sputum, Wheezing Cardiovascular: absent: Chest Pain Genitourinary Female: absent: Dysuria, Frequency Skin: absent: Rash, Pruritis, Skin Lesions Neurological: Headache, Dizziness. absent: Focal Weakness, Speech Changes, Facial Droop Physical Exam Vital Signs Reviewed: Yes Vital Signs Temp Pulse Resp BP Pulse Ox 05/08/17 19:20 68 17 135/66 96 05/08/17 17:45 98.5 F 77 16 159/90 H 95 Temperature: Afebrile Blood Pressure: Normal Pulse: Regular Respiratory Rate: Normal Appearance: Positive for: Well-Appearing, Non-Toxic, Comfortable Pain Distress: Mild Mental Status: Positive for: Alert and Oriented X 3 - Systems Exam Head: Present: Atraumatic, Normocephalic, Other (no temporal artery tenderness or jaw claudication) Pupils: Present: PERRL Extroacular Muscles: Present: EOMI Conjunctiva: Present: Normal Mouth: Present: Moist Mucous Membranes Pharnyx: No: ERYTHEMA, EXUDATE, TONSILS ENLARGED Neck: Present: Normal Range of Motion Respiratory/Chest: Present: Clear to Auscultation, Good Air Exchange. No: Respiratory Distress, Accessory Muscle Use Cardiovascular: Present: Regular Rate and Rhythm, Normal S1, S2, Other (+pedal edema bilateral lower extremity with 2+). No: Murmurs Abdomen: Present: Normal Bowel Sounds. No: Tenderness, Distention, Peritoneal Signs Back: Present: Normal Inspection Upper Extremity: Present: Normal Inspection. No: Cyanosis, Edema Lower Extremity: Present: Normal Inspection. No: Edema Neurological: Present: GCS=15, Speech Normal, Motor Func Grossly Intact, Memory Normal Skin: Present: Warm, Dry, Normal Color. No: Rashes Psychiatric: Present: Alert, Oriented x 3, Normal Insight, Normal Concentration Medical Decision Making ED Course and Treatment: 05/08/17 18:16 -labs -CT head/cxr -ekg -IVF/tylenol/meclizine -manager cardiac -NIHSS is 0 -observe and reassess 05/08/17 20:58 -CT head show no acute findings -Chest xray show no active disease -EKG: SR @ 67 BPM, no acute ST or T wave changes, chronic T wave inversion on lead III and aVF. -Labs show no acute findings with negative troponin and negative BNP -UA pending -Aspirin 325mg po ordered. -Pt. still feeling the dizziness with not controlled by the IVF and meclizine, will admit the patient over night, paging Dr. Mendoza and reassess - Lab Interpretations Lab Results: 05/08/17 18:20 05/08/17 18:20 Lab Results 05/08/17 18:20: Sodium 143, Potassium 4.0, Chloride 107, Carbon Dioxide 28, Anion Gap 12, BUN 20, Creatinine 0.8, Est GFR ( Amer) > 60, Est GFR (Non- Af Amer) > 60, Random Glucose 99, Calcium 9.9, Total Bilirubin 0.6, AST 29, ALT 29, Alkaline Phosphatase 98, Lactate Dehydrogenase 503, Total Creatine Kinase 57 , Troponin I < 0.01, NT-Pro-B Natriuret Pep 153, Total Protein 8.0, Albumin 4.4 , Globulin 3.7, Albumin/Globulin Ratio 1.2 05/08/17 18:20: WBC 6.8, RBC 4.19, Hgb 13.0, Hct 39.9, MCV 95.2, MCH 31.0, MCHC 32.6, RDW 13.4, Plt Count 230, MPV 10.3, Gran % 58.8, Lymph % (Auto) 32.1, [place] % (Auto) 5.3, Eos % (Auto) 3.2, Baso % (Auto) 0.6, Gran # 3.99, Lymph # 2.2, [place] # 0.4, Eos # 0.2, Baso # 0.04 I have reviewed the lab results: Yes Interpretation: No clinic. lab abnormalty - RAD Interpretation Radiology Orders: 05/08/17 18:06 HEAD W/O CONTRAST [CT] Stat CHEST PORTABLE [RAD] Stat CT Head: no acute intracranial findings Chest x-ray: no active disease [employer] Supervisor: Radiologist - EKG Interpretation EKG Interpretation (Text): 05/08/17 21:00 SR @ 67 BPM, no acute ST or T wave changes, chronic T wave inversion on lead III and aVF. Interpreted by ED Physician: Yes Type: 12 lead EKG Comparison: Com.w/previous EKG - Medication Orders Current Medication Orders: Aspirin (Aspirin Chewable) 81 mg PO DAILY [facility] Last Admin: 05/09/17 09:20 Dose: 81 mg Sodium Chloride (Sodium Chloride 0.9%) 1,000 mls @ 75 mls/hr IV .[id number] [facility] Last Admin: 05/08/17 18:32 Dose: 75 mls/hr Lisinopril (Zestril) 5 mg PO DAILY [facility] Last Admin: 05/09/17 10:41 Dose: 5 mg Meclizine HCl (Antivert) 25 mg PO Q8H [facility] Last Admin: 05/09/17 09:20 Dose: 25 mg Ondansetron HCl (Zofran Inj) 4 mg IVP Q6H PRN PRN Reason: Nausea/Vomiting Discontinued Medications Acetaminophen (Tylenol 325mg Tab) 650 mg PO STAT STA Stop: 05/08/17 18:15 Last Admin: 05/08/17 18:33 Dose: 650 mg Aspirin (Ecotrin) 325 mg PO STAT STA Stop: 05/08/17 20:59 Last Admin: 05/08/17 22:00 Dose: 325 mg Meclizine HCl (Antivert) 50 mg PO STAT STA Stop: 05/08/17 18:09 Last Admin: 05/08/17 18:31 Dose: 50 mg NIHSS Scale ([place]) Time Performed: 18:15 - How Severe is the Stoke Baseline Level of Consciousness: 0=Alert LOC to Questions: 0=Both comments correct LOC to commands: 0=Obeys both correctly Best Gaze: 0=Normal Visual: 0=No visual loss Facial: 0=Normal Motor Arm - Left: 0=No drift Motor Arm - Right: 0=No drift Motor Leg - Left: 0=No drift Motor Leg - Right: 0=No drift Limb Ataxia: 0=Absent Sensory: 0=Normal Best Language: 0=No aphasia Dysarthia: 0=Normal articulation Extinction & Inattention (Neglect): 0=Normal, no object Score: 0 Risk Level: No Stroke Risk rTPA Inclusion/Exclusion - Refusal of Treatment Patient Refused Treatment: No - Inclusion Criteria for Altepase Patient is 18 years or Older: Yes The Clinical Diagnosis of Ischemic Stroke That is Causing a Potentially Disabling Neurological Deficit: No Time of Onset is Well Established to be Less Than 270 Minute Before Treatment Would Begin: No Risk/Benefit Discussed With Patient/Family Member Present: Yes - Exclusion Criteria for Altepase Uncontrolled Hypertension at Time of Treatment (Systolic BP above 185 or Diastolic BP above 110 mmHg): No Active Internal Bleeding: No Known Bleeding Diathesis Including but Not Limited to: Platelets Below 100,000/ mm,PTT Above 40 sec After Heparin Use, Current Use of Oral Anitcoagulant With INR Greater Than 1.7 or PT Greater Than 15 secs: No Evidence of an Intracranial Hemorrhage: No Evidence of Major Acute Infarct With Signs Greater Than 1/3 MCA Territory: No Suspicion of Subarachnoid Hemorrhage on Pretreatment Evaluation Even if CT Head Negative For Hemorrhage: No - Warning to TPA With Conditions Following Conditions Weighed Against Anticipated Benefit: No - PA / [employer]ET[employer] 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 Disposition/Present on Arrival - Present on Arrival Any Indicators Present on Arrival: No History of DVT/PE: No History of Uncontrolled Diabetes: No Urinary Catheter: No History of Decub. Ulcer: No History Surgical Site Infection Following: None - Disposition Have Diagnosis and Disposition been Completed?: Yes Diagnosis: Near syncope, Dizziness Disposition: HOSPITALIZED Disposition Time: 21:02 Patient Plan: Observation, Telemetry Patient Problems: Current Active Problems Problem Status Onset Dizziness Acute Near syncope Acute Condition: STABLE
[2017-05-08] MEDS ORDERED: Sodium Chloride 0.9% 1,000 ML IV SCH (18:15)
[2017-05-08 18:40] LABS: BASO # 0.04 K/mm3 (0.0-2.0); BASO % 0.6 % (0.0-3.0); EOS # 0.2 (0.0-0.7); EOS % 3.2 % (1.5-5.0); GRAN # 3.99 (1.4-6.5); GRAN % 58.8 % (50.0-68.0); LYMPH # 2.2 (1.2-3.4); LYMPH % 32.1 % (22.0-35.0); MEAN CELL VOLUME 95.2 fl (80.0-105.0); MEAN CORPUSCULAR HGB CONC 32.6 g/dl (31.0-37.0); MEAN PLATELET VOLUME 10.3 fl (7.0-11.0); MONO # 0.4 (0.1-0.6); MONO % 5.3 % (1.0-6.0); PLATELET COUNT 230 10^3/uL (120.0-450.0); RBC 4.19 10^6/uL (3.5-6.1); RED CELL DISTRIBUTION WIDTH 13.4 % (11.5-14.5); WHITE BLOOD COUNT 6.8 10^3/ul (4.5-11.0)
[2017-05-08 18:55] LABS: ALB/GLOB RATIO 1.2 (1.1-1.8); ALBUMIN 4.4 g/dL (3.0-4.8); ALT/SGPT 29 U/L (7-56); AST/SGOT 29 U/L (15-39); BLOOD UREA NITROGEN 20 mg/dL (7-21); CALCIUM 9.9 mg/dL (8.4-10.5); GFR AFRICAN-AMERICAN > 60; GFR NON-AFRICAN AMERICAN > 60
[2017-05-08 19:07] LABS: B-TYPE NATRIURETIC PEPTIDE 153 pg/mL (0-450); TROPONIN I < 0.01 ng/mL
--- NOTE | 2017-05-08 19:35 | CT ---
EXAM: CT Head Without Intravenous Contrast CLINICAL HISTORY: 81 years old, female; Signs and symptoms; Dizziness; Additional info: Dizziness x 13 hours TECHNIQUE: Axial computed tomography images of the head/brain without intravenous contrast. This CT exam was performed using one or more of the following dose reduction techniques: automated exposure control, adjustment of the mA and/or kV according to patient size, and/or use of iterative reconstruction technique. EXAM DATE/TIME: 05/08/2017 6:06 PM COMPARISON: CT - HEAD W/O CONTRAST 04/23/2017 2:19:17 PM FINDINGS: Brain: Ventricles are normal in size and configuration. There is no midline shift. There is prominence of sulci and gyri. There is mild decrease attenuation in periventricular white matter.There are no intra-axial or extra-axial mass lesions or areas of hemorrhage. There are basal ganglia calcifications. There are no abnormal fluid collections. Pichardo-white differentiation is maintained. Ventricles: See above. Bones: Cranial vault is intact. Soft tissues: unremarkable Sinuses: There is left maxillary sinus disease. There is minimal mucoperiosteal thickening in frontal and ethmoid sinuses. Ears and mastoids: Middle ears and mastoids are unremarkable Orbits: There are no acute orbital abnormalities. IMPRESSION: Mild atrophy and small vessel disease, no acute intracranial abnormality
[2017-05-08 20:24] VITALS: O2SAT 96
[2017-05-08] MEDS ORDERED: Aspirin 325 mg EC Tablets PO STA (20:58)
[2017-05-09 01:48] VITALS: BMI 34.0
--- NOTE | 2017-05-09 08:03 | RAD ---
HISTORY: medical clearance COMPARISON: 04/23/2017 FINDINGS: LUNGS: No active pulmonary disease. PLEURA: No significant pleural effusion identified, no pneumothorax apparent. CARDIOVASCULAR: Normal heart size. Note is made of tortuosity of both the ascending and descending thoracic aorta. OSSEOUS STRUCTURES: No significant abnormalities. VISUALIZED UPPER ABDOMEN: Normal. OTHER FINDINGS: None. IMPRESSION: No active disease.
--- NOTE | 2017-05-09 13:06 | CP.PCM.CON ---
<Josiah Blake - Last Filed: 05/09/17 16:52> History of Present Illness - History of Present Illness History of Present Illness: Neurology Consult Note for Dr. Ceja 81 year old female with PMHx colon cancer s/p chemotherapy and hemicolectomy who presents to the hospital after waking up with dizziness and headache this morning. Of note, patient only speaks Mandarin. Much of information about history was obtained from prior medical records and over conversation with daughter. Pt was recently admitted to the hospital 3 weeks ago for similar issues. Pt states she was feeling well since she left the hospital from last admission and before she went to sleep last night. When she awoke, she began to develop dizziness and noted she had a headache. When speaking with the daughter , the patient has had elevated BP over the last 2 weeks. When the patient's BP is over 130 systolic, she always begins to feel dizzy and lightheaded. Currently , patient denies CP, SOB, N/V/D, syncope, fevers, chills. PMH: Colon cancer s/p chemotherapy PSH: Hemicolectomy Allergies: NKDA Social: Denies tobacco, alcohol, drugs. Home meds: Denies Review of Systems - Constitutional Constitutional: absent: Fatigue, Fever - EENT Eyes: absent: Blurred Vision, Change in Vision - Cardiovascular Cardiovascular: absent: Chest Pain, Irregular Heart Rhythm - Respiratory Respiratory: absent: Cough, Dyspnea - Gastrointestinal Gastrointestinal: absent: Abdominal Pain, Diarrhea, Vomiting - Genitourinary Genitourinary: absent: Dysuria, Pyuria - Integumentary Integumentary: absent: New Lesions, Rash - Neurological Neurological: Dizziness, Headaches. absent: Syncope, Tingling, Tremor - Psychiatric Psychiatric: absent: Anxiety, Depression - Hematologic/Lymphatic Hematologic: absent: Easy Bleeding, Easy Bruising Past Patient History - Infectious Disease Hx of Infectious Diseases: None - Past Medical History & Family History Past Medical History?: Yes - Past Social History Smoking Status: Never Smoked - CARDIAC Hx Hypertension: Yes - PULMONARY Hx Respiratory Disorders: No - NEUROLOGICAL Hx Dementia: Yes - HEENT Hx HEENT Problems: No - RENAL Hx Chronic Kidney Disease: No - ENDOCRINE/METABOLIC Hx Endocrine Disorders: No - HEMATOLOGICAL/ONCOLOGICAL Hx Cancer: Yes Hx Chemotherapy: Yes - INTEGUMENTARY Hx Dermatological Problems: No - MUSCULOSKELETAL/RHEUMATOLOGICAL Hx Arthritis: Yes Hx Falls: No - GASTROINTESTINAL Hx Gastrointestinal Disorders: Yes Other/Comment: colon ca had chemo 5 yrs ago - GENITOURINARY/GYNECOLOGICAL Hx Genitourinary Disorders: No - PSYCHIATRIC Hx Depression: Yes - SURGICAL HISTORY Hx Surgeries: Yes - ANESTHESIA Hx Anesthesia: Yes Hx Anesthesia Reactions: No Hx Malignant Hyperthermia: No Meds Allergies/Adverse Reactions: Allergies Allergy/AdvReac Type Severity Reaction Status Date / Time No Known Allergies Allergy Verified 12/27/16 10:14 - Medications Medications: Current Medications Aspirin (Aspirin Chewable) 81 mg PO DAILY [facility] Last Admin: 05/09/17 09:20 Dose: 81 mg Sodium Chloride (Sodium Chloride 0.9%) 1,000 mls @ 75 mls/hr IV .[id number] [facility] Last Admin: 05/08/17 18:32 Dose: 75 mls/hr Lisinopril (Zestril) 5 mg PO DAILY [facility] Last Admin: 05/09/17 10:41 Dose: 5 mg Meclizine HCl (Antivert) 25 mg PO Q8H [facility] Last Admin: 05/09/17 09:20 Dose: 25 mg Ondansetron HCl (Zofran Inj) 4 mg IVP Q6H PRN PRN Reason: Nausea/Vomiting Physical Exam - Constitutional Appears: Non-toxic, No Acute Distress - Head Exam Head Exam: ATRAUMATIC, NORMAL INSPECTION, NORMOCEPHALIC - Eye Exam Eye Exam: EOMI - ENT Exam ENT Exam: Mucous Membranes Moist - Neck Exam Neck exam: Positive for: Normal Inspection. Negative for: Lymphadenopathy - Respiratory Exam Respiratory Exam: Clear to Auscultation Bilateral, NORMAL BREATHING PATTERN. absent: Rales, Rhonchi, Wheezes - Cardiovascular Exam Cardiovascular Exam: RRR, +S1, +S2 - GI/Abdominal Exam GI & Abdominal Exam: Normal Bowel Sounds, Soft. absent: Tenderness - Extremities Exam Extremities exam: Negative for: calf tenderness, pedal edema - Neurological Exam Neurological exam: Alert, CN II-XII Intact, Oriented x3 - Psychiatric Exam Psychiatric exam: Normal Affect, Normal Mood - Skin Skin Exam: Intact, Normal Color, Warm Results - Vital Signs Recent Vital Signs: Last Vital Signs Temp 97.6 F 05/09/17 06:00 Pulse 68 05/09/17 10:41 Resp 20 05/09/17 06:00 BP 142/75 05/09/17 10:41 Pulse Ox 96 05/09/17 06:00 - Labs Result Diagrams: 05/08/17 18:20 05/08/17 18:20 Assessment & Plan - Assessment and Plan (Free Text) Plan: 81 year old female with PMHx colon cancer s/p chemotherapy and hemicolectomy who presents with near syncope and dizziness likely secondary to increased blood pressure. Head CT showed mild atrophy and small vessel disease with no acute abnormalities. Pt has been seen recently for similar complaints. Pt is neurologically stable. Will sign off at this time. Plan: Recommend keeping SBP between 120-130 Continue ASA and Zestril at home Low salt diet Follow up outpatient with Dr. Brenna Blake, PGY-2 <Cody Ceja - Last Filed: 05/09/17 17:07> Meds - Medications Medications: Current Medications Aspirin (Aspirin Chewable) 81 mg PO DAILY [facility] Last Admin: 05/09/17 09:20 Dose: 81 mg Sodium Chloride (Sodium Chloride 0.9%) 1,000 mls @ 75 mls/hr IV .[id number] [facility] Last Admin: 05/08/17 18:32 Dose: 75 mls/hr Lisinopril (Zestril) 5 mg PO DAILY [facility] Last Admin: 05/09/17 10:41 Dose: 5 mg Meclizine HCl (Antivert) 25 mg PO Q8H [facility] Last Admin: 05/09/17 09:20 Dose: 25 mg Ondansetron HCl (Zofran Inj) 4 mg IVP Q6H PRN PRN Reason: Nausea/Vomiting Results - Vital Signs Recent Vital Signs: Last Vital Signs Temp 97.9 F 05/09/17 12:00 Pulse 63 05/09/17 14:00 Resp 18 05/09/17 12:00 BP 135/73 05/09/17 12:00 Pulse Ox 96 05/09/17 06:00 - Labs Result Diagrams: 05/08/17 18:20 05/08/17 18:20 Attending/Attestation - Attestation I have personally seen and examined this patient.: Yes I have fully participated in the care of the patient.: Yes I have reviewed all pertinent clinical information: Yes
[2017-05-09 15:38] VITALS: RESP 18
[2017-05-09 17:47] VITALS: BP 128/70; TEMP 98
[2017-05-09 18:25] VITALS: PULSE 72
--- NOTE | 2017-05-09 20:34 | HP ---
HISTORY OF PRESENT ILLNESS: I saw her in her room resting comfortably in bed. She is in no acute distress. No nausea, vomiting at this time, comfortable, no apparent pain. She is a 81-year-old female who was brought in with complaints of dizziness, nausea, headache, woke up, no falls, no trauma. She was feeling well prior to sleep. Woke up at 5 a.m. with dizziness along with nausea and headache, thought that she was going to pass out but did not. No shortness of breath. No chest pain. She has had the cough for few days. PAST MEDICAL HISTORY: She has arthritis,she has colon cancer with chemo 5 years ago. She is being depressed, little bit dementia. She had total right knee replacement. Colon resection. FAMILY HISTORY: Hypertension. SOCIAL HISTORY: She never smoked, no alcohol, no drugs. ALLERGIES: NO KNOWN DRUG ALLERGIES. MEDICATIONS: She takes the vitamin. REVIEW OF SYSTEMS: No acute vision changes or hearing changes. At this time, no headache. She had headache when she came in. She is not fatigued. No fevers. There was a cough, none now. No shortness of breath, sputum, or wheezing. No chest pain or palpitations. No problems urinating. Skin is intact. No rashes or lesions. She was with the headaches, but the dizziness is now gone. She is resting in bed comfortably, can moving all 4 extremities. PHYSICAL EXAMINATION: GENERAL: Alert and oriented x3. Well appearing, nontoxic at this time. VITAL SIGNS: She has a 98.5 temp, 77 pulse, 16 respiratory rate, 135/66 blood pressure, 96% sat on room air. HEENT: Head is atraumatic, normocephalic. Extraocular muscles are intact. Pupils are equally reactive to light and accommodation. Mouth is moist. NECK: Supple. No JVD. Thyroid is midline. No palpable appreciative lymphadenopathy. HEART: Regular rate. Normal S1 and S2. LUNGS: Decreased breath sounds. Clear to auscultation. No wheezes, no rhonchi, no rales. ABDOMEN: Soft and nontender. Positive bowel sounds. No guarding. No rebound. No CVA tenderness. EXTREMITIES: No edema. She can move all 4 extremities. NEUROLOGY: GCS is 15. Cranial nerves II through XII grossly intact. SKIN: Grossly, skin is warm and dry. LABORATORY DATA: She had multiple tests. She had a 143 sodium, potassium 4, BUN 20, creatinine 0.8. GFR greater than 60, sugar is 99, calcium is 9.9, total bilirubin is 0.6, AST is 29, ALT is 29, alkaline phosphatase is 98, lactate dehydrogenase is 503. Troponin I is less than 0.01. BNP is 153. Total protein is 8. White count 6.8, hemoglobin 13, hematocrit 39.9, platelet 230. CAT scan of the head and the chest x-ray were okay. I have ordered an MRI of the brain, ultrasound of the neck. Ordered neuro consult, physical therapy. I am hoping I could discharge her later this afternoon. She is here on observation status for near syncope. Gave her some Antivert for the dizzy, Zofran for the nauseousness which has gone right now. She has a baby aspirin, and she is on IV fluids at 75 mL/hour. Hoping after Dr. Cody Ceja sees her and the tests come back, we can discharge later on this afternoon, but she is here for near syncope. Rigoberto Mendoza DO
--- NOTE | 2017-05-09 23:30 | CARD ---
APPROVED REPORT EKG Measurement Heart [id number] [place] [id number] <Conclusion> Sinus rhythm with premature atrial complexes Right bundle branch block Inferior infarct, age undetermined Abnormal ECG
== END 2017-05-09 19:23 | disposition home or self-care (01) ==
LOC: ED 17:17 → ERH 21:15 → 2RSO 23:36
PROVIDERS: ADMIT Family Medicine; ATTEND Family Medicine
DX: I10 Essential (primary) hypertension (principal); R55 Syncope and collapse; R42 Dizziness and giddiness; F03.90 Unspecified dementia, unspecified severity, without behavioral disturbance, psychotic disturbance, mood disturbance, and anxiety; F32.9 Major depressive disorder, single episode, unspecified; Z90.49 Acquired absence of other specified parts of digestive tract; Z96.651 Presence of right artificial knee joint; Z85.038 Personal history of other malignant neoplasm of large intestine; Z92.21 Personal history of antineoplastic chemotherapy
CPT/HCPCS: 70450; 71010; 80053; 82550; 83615; 83880; 84484; 85025; 92610; 93005; 97116; 97162; 99285; G0378; G8978; G8979; G8980; G8996; G8997; G8998; J7040

== ENCOUNTER 2017-05-16 06:22 | Emergency (ER) | payer MEDICARE, OTHER ==
[2017-05-16 06:22] VITALS: BMI 34.0
[2017-05-16 06:36] VITALS: TEMP 98.2
--- NOTE | 2017-05-16 07:47 | ED PDOC ---
Arrival/HPI - General Chief Complaint: Dizziness/Lightheaded Time Seen by Provider: 05/16/17 07:17 Historian: Family (daughter) - History of Present Illness Narrative History of Present Illness (Text): 05/16/17 07:21 A 81 year old female, whose past medical history includes colon cancer, right knee replacement (in [place]), arthritis, is brought in by family and presents to the emergency department complaining of hypertension since earlier this morning. Patient's daughter reports that the patient has been experiencing dizziness and head pain on the top of her head. Pain worsens with movement of the head and standing up. The pain is described as "feeling as though water were moving around in the head" associated with "feeling as though electricity is passing throughout the body" down to the lower extremities. The daughter also mentions that the patient experiences these symptoms mostly in the morning. Patient notes experiencing dizziness but denies of any nausea, vomiting, fever, chills, headache, or any other complaints. Patient takes Lisinopril 5 mg for hypertension and Aspirin for dizziness. Also, the daughter mentions that she herself experiences vertigo. Patient is Mandarin speaking, translated by daughter. PMD: Dr. Mendoza Time/Duration: Prior to Arrival (earlier this morning) Symptom Onset: Sudden Symptom Course: Unchanged Context: Home Past Medical History - Provider Review Nursing Documentation Reviewed: Yes - Infectious Disease Hx of Infectious Diseases: None - Reproductive Menopause: Yes - Cardiac Hx Hypertension: Yes - Pulmonary Hx Respiratory Disorders: No - Neurological Hx Dementia: Yes - HEENT Hx HEENT Disorder: No - Renal Hx Renal Disorder: No - Endocrine/Metabolic Hx Endocrine Disorders: No - Hematological/Oncological Hx Cancer: Yes Hx Chemotherapy: Yes - Integumentary Hx Dermatological Disorder: No - Musculoskeletal/Rheumatological Hx Arthritis: Yes Hx Falls: No - Gastrointestinal Hx Gastrointestinal Disorders: No Other/Comment: colon ca had chemo 5 yrs ago - Genitourinary/Gynecological Hx Genitourinary Disorders: No - Psychiatric Hx Depression: Yes Hx Substance Use: No - Surgical History Hx Orthopedic Surgery: Yes (left knee replacement) - Anesthesia Hx Anesthesia: Yes Hx Anesthesia Reactions: No Hx Malignant Hyperthermia: No Family/Social History - Physician Review Nursing Documentation Reviewed: Yes Family/Social History: No Known Family HX Smoking Status: Never Smoked Hx Alcohol Use: No Hx Substance Use: No Allergies/Home Meds Allergies/Adverse Reactions: Allergies No Known Allergies Allergy (Verified 05/16/17 06:31) Home Medications: Home Meds Medication Instructions Recorded Confirmed Aspirin [Ecotrin] 81 mg PO DAILY 05/16/17 05/16/17 Lisinopril [Zestril] 5 mg PO DAILY 05/16/17 05/16/17 Review of Systems - Physician Review All systems were reviewed & negative as marked: Yes - Review of Systems Constitutional: absent: Fevers, Night Sweats Gastrointestinal: absent: Nausea, Vomiting Musculoskeletal: Other (head pain located at top of head, worsens with head movement (turning rather than up and down movement)) Neurological: Dizziness. absent: Headache Physical Exam Vital Signs Reviewed: Yes Vital Signs Temp Pulse Resp BP Pulse Ox 05/16/17 09:40 99 H 18 155/79 H 98 05/16/17 07:32 64 18 139/90 96 05/16/17 06:22 98.2 F 67 16 186/83 H 96 Temperature: Afebrile Blood Pressure: Hypertensive Pulse: Regular Respiratory Rate: Normal Appearance: Positive for: Well-Appearing Pain Distress: None Mental Status: Positive for: Alert and Oriented X 3 - Systems Exam Head: Present: Atraumatic, Normocephalic Pupils: Present: PERRL Extroacular Muscles: Present: EOMI Conjunctiva: Present: Normal Mouth: Present: Moist Mucous Membranes Neck: Present: Normal Range of Motion. No: Paraspinal Tenderness, Bruit Respiratory/Chest: Present: Clear to Auscultation, Good Air Exchange. No: Respiratory Distress, Accessory Muscle Use Cardiovascular: Present: Regular Rate and Rhythm, Normal S1, S2. No: Murmurs Abdomen: Present: Normal Bowel Sounds. No: Tenderness, Distention, Peritoneal Signs Back: Present: Normal Inspection Upper Extremity: Present: Normal Inspection. No: Cyanosis, Edema Lower Extremity: Present: Normal Inspection. No: Edema Neurological: Present: GCS=15, CN II-XII Intact, Speech Normal, Motor Func Grossly Intact, Normal Sensory Function, Normal Cerebellar Funct, Gait Normal, Other (dizziness when turning head) Skin: Present: Warm, Dry, Normal Color. No: Rashes Psychiatric: Present: Alert, Oriented x 3, Normal Insight, Normal Concentration Medical Decision Making ED Course and Treatment: 05/16/17 07:30 Impression: 81 year old female with hypertension, head pain, and dizziness. Physical exam shows patient experiences dizziness when turning her head, overall normal physical exam. Differential Diagnosis included but are not limited to: Benign positional vertigo vs. Cardiac vs. Neurogenic Plan: -- EKG -- Head CT -- Labs -- Chest X-Ray -- Antivert -- Urinalysis -- Reassess and disposition Prior Visits: Notes and results from previous visits were reviewed. On 05/08/2017 for dizziness/nausea/headache. Patient was admitted. Progress Notes: 05/16/2017 07:33 EKG: Ordered, reviewed, and independently interpreted the EKG. Rate : 64 BPM Rhythm : NSR Interpretation : Right Bundle Branch Block Comparison : Previous EKG from 05/08/2017 showed SR @ 67 BPM, no acute ST or T wave changes, chronic T wave inversion on lead III and aVF. 05/16/2017 08:[address] IMPRESSION: No intracranial hemorrhage. Dictator : Travis Holloway MD 05/16/2017 08:52 Chest X-Ray IMPRESSION: No active disease. Dictator : José Luis Avery MD 05/16/2017 09:08 On re-evaluation, patient no longer feels symptoms and is in no acute distress. BP improved. I have discussed the results and plan with the patient and family, who expresses understanding. Patient in agreement with plan to be discharged home. Patient is stable for discharge. She is able to walk with no ataxia or any instability Patient was instructed to follow up with Dr. Mendoza as outpatient in 1-2 days or return if symptoms worsen or new concerning symptoms arise. - Lab Interpretations Lab Results: 05/16/17 07:50 05/16/17 07:50 Lab Results 05/16/17 08:02: POC Glucose (mg/dL) 97 05/16/17 07:50: Sodium 142, Potassium 4.4, Chloride 107, Carbon Dioxide 27, Anion Gap 12, BUN 17, Creatinine 0.7, Est GFR ( Amer) > 60, Est GFR (Non- Af Amer) > 60, Random Glucose 96, Calcium 9.7, Magnesium 1.9, Total Bilirubin 0.6, AST 25, ALT 27, Alkaline Phosphatase 88, Lactate Dehydrogenase 432, Total Creatine Kinase 38, Troponin I < 0.01, Total Protein 7.0, Albumin 4.0, Globulin 3.1, Albumin/Globulin Ratio 1.3 05/16/17 07:50: Urine Color Light yellow, Urine Appearance Clear, Urine pH 6.0, Ur Specific [place] 1.010, Urine Protein Negative, Urine Glucose (UA) Negative, Urine Ketones Negative, Urine Blood Negative, Urine Nitrate Negative, Urine Bilirubin Negative, Urine Urobilinogen 0.2, Ur Leukocyte Esterase Small H, Urine RBC 0 - 2, Urine WBC 1 - 3, Ur Epithelial Cells 0 - 2, Urine Bacteria Neg 05/16/17 07:50: WBC 6.5, RBC 3.88, Hgb 12.0, Hct 36.8, MCV 94.8, MCH 30.9, MCHC 32.6, RDW 13.4, Plt Count 195, MPV 10.5, Gran % 58.6, Lymph % (Auto) 30.4, [place] % (Auto) 5.7, Eos % (Auto) 4.7, Baso % (Auto) 0.6, Gran # 3.78, Lymph # 2.0, [place] # 0.4, Eos # 0.3, Baso # 0.04 I have reviewed the lab results: Yes - RAD Interpretation Radiology Orders: 05/16/17 07:30 Brain [HEAD W/O CONTRAST] [CT] Stat CHEST ONE VIEW [RAD] Stat - Medication Orders Current Medication Orders: Discontinued Medications Meclizine HCl (Antivert) 25 mg PO STAT STA Stop: 05/16/17 07:30 Last Admin: 05/16/17 07:55 Dose: 25 mg - Scribe Statement The provider has reviewed the documentation as recorded by the Ramón Rodriguez Provider Scribe Attestation: All medical record entries made by the Ramón were at my direction and personally dictated by me. I have reviewed the chart and agree that the record accurately reflects my personal performance of the history, physical exam, medical decision making, and the department course for this patient. I have also personally directed, reviewed, and agree with the discharge instructions and disposition. Disposition/Present on Arrival - Present on Arrival Any Indicators Present on Arrival: No History of DVT/PE: No History of Uncontrolled Diabetes: No Urinary Catheter: No History of Decub. Ulcer: No History Surgical Site Infection Following: None - Disposition Have Diagnosis and Disposition been Completed?: Yes Diagnosis: Hypertension, Dizziness Disposition: HOME/ ROUTINE Disposition Time: 09:00 Patient Plan: Discharge Patient Problems: Current Active Problems Problem Status Onset Hypertension Acute Dizziness Acute Condition: IMPROVED Discharge Instructions (ExitCare): Vertigo (ED), Hypertension (ED) Additional Instructions: Ms Cuellar, thank you for letting us take care of you today. Your provider was Dr. Madden. You were treated for Dizziness, Hypertension. The emergency medical care you received today was directed at your acute symptoms. If you were prescribed any medication, please fill it and take as directed. It may take several days for your symptoms to resolve. Return to the Emergency Department if your symptoms worsen, do not improve, or if you have any other problems. Please contact your doctor or call one of the physicians/clinics you have been referred to that are listed on the Patient Visit Information form that is included in your discharge packet. Bring any paperwork you were given at discharge with you along with any medications you are taking to your follow up visit. Our treatment cannot replace ongoing medical care by a primary care provider (PCP) outside of the emergency department. Thank you for allowing the [facility] team to be part of your care today. If you had an X-Ray or CT scan: A Radiologist will review the ED reading if any change in treatment is needed we will contact you. If you had a blood, urine, or wound culture: It will take several days for the results, if any change in treatment is needed we will contact you. If you had an STI test: It will take 48 hours for the results. Please call after 1 week if you have not heard back. Prescriptions: Meclizine [Meclizine*] 25 mg PO Q8 #30 tab Referrals: Rigoberto Mendoza DO [Primary Care Provider] - Follow up with primary Forms: [employer] (Lao)
[2017-05-16 08:04] VITALS: RESP 18
[2017-05-16 08:06] LABS: BASO # 0.04 K/mm3 (0.0-2.0); BASO % 0.6 % (0.0-3.0); EOS # 0.3 (0.0-0.7); EOS % 4.7 % (1.5-5.0); GRAN # 3.78 (1.4-6.5); GRAN % 58.6 % (50.0-68.0); LYMPH % 30.4 % (22.0-35.0); MEAN CELL VOLUME 94.8 fl (80.0-105.0); MEAN CORPUSCULAR HEMOGLOBIN 30.9 pg (25.0-35.0); MEAN CORPUSCULAR HGB CONC 32.6 g/dl (31.0-37.0); MEAN PLATELET VOLUME 10.5 fl (7.0-11.0); MONO # 0.4 (0.1-0.6); MONO % 5.7 % (1.0-6.0); PLATELET COUNT 195 10^3/uL (120.0-450.0); RBC 3.88 10^6/uL (3.5-6.1); RED CELL DISTRIBUTION WIDTH 13.4 % (11.5-14.5); WHITE BLOOD COUNT 6.5 10^3/ul (4.5-11.0)
[2017-05-16 08:07] LABS: URINE BILIRUBIN NEGATIVE (NEGATIVE); URINE BLOOD NEGATIVE (NEGATIVE); URINE GLUCOSE (UA) NEGATIVE (NEGATIVE); URINE LEUKOCYTE ESTERASE SMALL Leu/uL (NEGATIVE); URINE NITRATE NEGATIVE (NEGATIVE); URINE PROTEIN NEGATIVE mg/dL (<30 mg/dL); URINE UROBILINOGEN 0.2 E.U./dL (<1 E.U./dL)
[2017-05-16 08:09] LABS: URINE COLOR LIGHT YELLOW (YELLOW)
[2017-05-16 08:19] LABS: ALB/GLOB RATIO 1.3 (1.1-1.8); ALT/SGPT 27 U/L (7-56); AST/SGOT 25 U/L (15-39); BLOOD UREA NITROGEN 17 mg/dL (7-21); CALCIUM 9.7 mg/dL (8.4-10.5); GFR AFRICAN-AMERICAN > 60; GFR NON-AFRICAN AMERICAN > 60; MAGNESIUM 1.9 mg/dL (1.7-2.2)
[2017-05-16 08:29] LABS: TROPONIN I < 0.01 ng/mL
[2017-05-16 08:33] LABS: URINE APPEARANCE CLEAR (CLEAR)
[2017-05-16 08:36] LABS: URINE BACTERIA NEG (NEG); URINE EPITHELIAL CELLS 0 - 2 /hpf (0-5); URINE RBC 0 - 2 /hpf (0-2)
--- NOTE | 2017-05-16 08:54 | CT ---
PROCEDURE: CT HEAD WITHOUT CONTRAST. HISTORY: htn and dizziness COMPARISON: 05/08/2017 TECHNIQUE: Axial computed tomography images were obtained through the head/brain without intravenous contrast. Radiation dose: Total exam DLP = 748 mGy-cm. This CT exam was performed using one or more of the following dose reduction techniques: Automated exposure control, adjustment of the mA and/or kV according to patient size, and/or use of iterative reconstruction technique. FINDINGS: HEMORRHAGE: No intracranial hemorrhage. BRAIN: No mass effect or edema. No atrophy or chronic microvascular ischemic changes. VENTRICLES: Unremarkable. No hydrocephalus. CALVARIUM: Unremarkable. PARANASAL SINUSES: Left maxillary sinus disease. MASTOID AIR CELLS: Unremarkable as visualized. No inflammatory changes. OTHER FINDINGS: None. IMPRESSION: No intracranial hemorrhage.
--- NOTE | 2017-05-16 08:54 | RAD ---
PROCEDURE: CHEST RADIOGRAPH, 1 VIEW HISTORY: dizziness COMPARISON: 05/08/2017 FINDINGS: LUNGS: Clear. PLEURA: No pneumothorax or pleural fluid seen. CARDIOVASCULAR: Mild cardiomegaly and mild aortic tortuosity OSSEOUS STRUCTURES: No significant abnormalities. VISUALIZED UPPER ABDOMEN: Normal. OTHER FINDINGS: None. IMPRESSION: No active disease.
[2017-05-16 09:40] VITALS: O2SAT 98
[2017-05-16 10:24] VITALS: BP 139/94; PULSE 75
--- NOTE | 2017-05-16 11:47 | CARD ---
APPROVED REPORT EKG Measurement Heart [id number] [id number] <Conclusion> Normal sinus rhythm with sinus arrhythmia Right bundle branch block Inferior infarct, age undetermined Abnormal ECG
== END 2017-05-16 10:26 | disposition home or self-care (01) ==
LOC: ED 06:22
DX: I10 Essential (primary) hypertension (principal); R42 Dizziness and giddiness; F03.90 Unspecified dementia, unspecified severity, without behavioral disturbance, psychotic disturbance, mood disturbance, and anxiety; Z85.038 Personal history of other malignant neoplasm of large intestine

== ENCOUNTER 2018-07-03 09:43 | Day surgery (SDC) | payer MEDICARE, OTHER ==
[2018-07-02 12:38] VITALS: BMI 35.5
[2018-07-03 10:24] LABS: BASO # 0.03 K/mm3 (0.0-2.0); BASO % 0.3 % (0.0-3.0); EOS # 0.4 (0.0-0.7); EOS % 3.5 % (1.5-5.0); GRAN # 6.91 (1.4-6.5); HEMOGLOBIN 11.8 g/dL (12.0-16.0); LYMPH # 2.5 (1.2-3.4); LYMPH % 24.2 % (22.0-35.0); MEAN CELL VOLUME 93.1 fl (80.0-105.0); MEAN CORPUSCULAR HEMOGLOBIN 30.2 pg (25.0-35.0); MEAN CORPUSCULAR HGB CONC 32.4 g/dl (31.0-37.0); MEAN PLATELET VOLUME 9.4 fl (7.0-11.0); MONO # 0.6 (0.1-0.6); RBC 3.91 10^6/uL (3.5-6.1); RED CELL DISTRIBUTION WIDTH 12.6 % (11.5-14.5); WHITE BLOOD COUNT 10.5 10^3/ul (4.5-11.0)
[2018-07-03 10:30] LABS: INR 1.03; PARTIAL THROMBOPLASTIN TIME 35.8 Seconds (25.1-36.5); PROTHROMBIN TIME 11.8 SECONDS (9.4-12.5)
[2018-07-03 10:33] LABS: BLOOD UREA NITROGEN 23 mg/dL (7-21); CALCIUM 10.1 mg/dL (8.4-10.5); GFR NON-AFRICAN AMERICAN > 60
[2018-07-03] MEDS ORDERED: Lidocaine 2% PF (10 ml) Amp ONE (11:06)
[2018-07-03] MEDS ORDERED: Iohexol 350mgl/ml 50 ML ONE ×2 (11:29→12:38)
[2018-07-03] MEDS ORDERED: Midazolam 2 MG/2 ML VIAL ONE ×3 (12:26→12:59)
[2018-07-03] MEDS ORDERED: Oxycodone/Acetaminophen 5/325 mg Tab PO PRN (13:14)
[2018-07-03] MEDS ORDERED: Sodium Chloride 0.45% 1,000 ML IV SCH (13:15)
--- NOTE | 2018-07-03 17:26 | VASCULAR ---
PROCEDURE: 1. L1 kyphoplasty HISTORY: Severe, refractory back pain. Unresponsive to bed rest and analgesics. Acute L1 compression fracture on MRI. Chronic L3 compression fracture PHYSICIAN(S): Fede Nichols MD. TECHNIQUE: he relative risks and indications of the procedure were explained to the patient and her daughter and informed written consent obtained. The patient was placed prone on the arteriography table and the thoracolumbar spine prepped and draped in the usual sterile fashion. Conscious sedation and monitoring were provided throughout the procedure by a nurse. The L1 vertebral body was carefully localized with fluoroscopy. The skin and soft tissues were anesthetized with 1% Xylocaine. Under direct fluoroscopic guidance, bilateral transpedicular bone needles were placed into the posterior aspect of the L1 vertebral body. Next bilateral 10 mm bone balloons were placed in the superior and anterior portion of the L1 vertebral body. They were inflated to approximately 3 cc apiece with dilute contrast. The balloons were removed and 4.5 cc of barium-impregnated PMMA cement instilled into the L1 vertebral body. No extravasation was seen. The bone needles were removed. The patient tolerated the procedure well. IMPRESSION: 1. Fluoroscopically-guided L1 kyphoplasty.
[2018-07-03] MEDS ORDERED: POLYETHYLENE GLYCOL 3350 17 GM/Dose PACKET PO SCH (18:00)
--- NOTE | 2018-07-04 01:04 | HP ---
HISTORY OF PRESENT ILLNESS: I saw her in the office about a week ago. She gets brought in by her son in law. She speaks Danish. She had a fall even 10 days prior to my visit and she has had severe back pain, extremely painful, but she is very stoic and it took them a lot to realize that she hurt herself. As soon as I saw her and examined her, she was in acute pain. I immediately got a test, an MRI of the low back and it showed compressed disks status post fall and I think L1 was the worst one and I sent her to Dr. Fede Nichols, the interventional radiologist and she had a kyphoplasty today, which I am hoping will help relieve the lower back pain. She was using some patches from [place]. There is a little bit of a rash on the low back. We will stop that. She is resting in bed now. She is an 82-year-old white female with a fall with acute low back compression fractures. She is status post kyphoplasty. She has a history of hypertension, arthritis, colon cancer, syncope, constipation, slight dementia. She had a right knee replacement in [place], had a hemicolectomy. She is postmenopausal. She uses glasses for reading. She is alert and awake and oriented as per family that does not speak [place]. She has disk disease and arthritis. She has been having very bad lower back pain, quite severe, 10/10 is the worst and she has that. ALLERGIES: SHE HAS NO KNOWN DRUG ALLERGIES. MEDICATIONS: She takes Colace, Cozaar, Ecotrin, HydroDIURIL, MiraLax, Tylenol as needed. REVIEW OF SYSTEMS: No acute vision or hearing changes. No chest pain. No shortness of breath or abdominal pain. She has severe low back pain, status post kyphoplasty. PHYSICAL EXAMINATION: VITAL SIGNS: She has a 98.2 temp, 71 pulse, 148/78 blood pressure, 16 respiratory rate, 100% O2 sat on 3 L nasal cannula. HEENT: Head is atraumatic, normocephalic. HEART: Regular rate. LUNGS: Decreased breath sounds, but clear. ABDOMEN: Soft, obese, nontender. Positive bowel sounds. EXTREMITIES: Have no edema. Tender low back. LABORATORY DATA: She has a 139 sodium, potassium 4.8, BUN 23, creatinine 0.9, GFR is greater than 60, sugar is 107, calcium is 10.1. INR is 1.03. White count is 10.5, hemoglobin 11.8, hematocrit 36.4, platelets of 314. IMPRESSION: She has IV fluids running at 60 mL an hour. We will check her labs tomorrow. She will be watched overnight and discharge tomorrow that is the plan. Hopefully, she will do very well. She is here for a fall, L1 compression fracture, severe back pain. Rigoberto Mendoza DO
[2018-07-04 07:06] LABS: HEMOGLOBIN 10.7 g/dL (12.0-16.0); MEAN CELL VOLUME 92.8 fl (80.0-105.0); MEAN CORPUSCULAR HEMOGLOBIN 29.7 pg (25.0-35.0); MEAN PLATELET VOLUME 9.5 fl (7.0-11.0); RBC 3.6 10^6/uL (3.5-6.1); RED CELL DISTRIBUTION WIDTH 12.3 % (11.5-14.5); WHITE BLOOD COUNT 7.5 10^3/ul (4.5-11.0)
[2018-07-04 07:26] LABS: ALB/GLOB RATIO 1.1 (1.1-1.8); ALBUMIN 3.5 g/dL (3.0-4.8); ALT/SGPT 26 U/L (7-56); AST/SGOT 26 U/L (14-36); BLOOD UREA NITROGEN 16 mg/dL (7-21); CALCIUM 9.5 mg/dL (8.4-10.5); GFR NON-AFRICAN AMERICAN 53
[2018-07-04 08:35] VITALS: BP 131/69; PULSE 79; RESP 20; TEMP 98.1; O2SAT 97
--- NOTE | 2018-07-04 14:32 | DS ---
HISTORY OF PRESENT ILLNESS: She had a kyphoplasty yesterday with Dr. Nichols. He said she can go home today. She was kept overnight. She was in severe pain. Now, she is doing much better. She is on Ultram, Ecotrin, HydroDIURIL, Diovan and Metamucil. She is alert. She is smiling. The daughter is with her. PHYSICAL EXAMINATION: VITAL SIGNS: She has a 100 temp, 98.2 temp, 77 pulse, 151/78 blood pressure, 18 respiratory rate, 95% O2 sat on room air. HEENT: Head is atraumatic, normocephalic. HEART: Regular rate. LUNGS: Decreased breath sounds, but clear. ABDOMEN: Soft. EXTREMITIES: No edema. The back is less painful. LABORATORY DATA: She has a 7.5 white count, 10.7 hemoglobin with 254 platelets. She has a 141 sodium, potassium 4.4, BUN is 16, creatinine 1, GFR is 53, sugar is 98, calcium is 9.5, total bili is 0.5, AST is 26, ALT is 26, alk phos 99, total protein 6.5. ASSESSMENT: She will be discharged today. We will follow up in the office with her and I am hoping that she will continue to improve and walk better and feel better and the back pain is improved. Rodney Cuellar who has compression fracture of L1, status post kyphoplasty. Rigoberto Mendoza DO
== END 2018-07-04 12:39 | disposition home or self-care (01) ==
LOC: SDSVAS 09:43 → 3RSO 16:25 → SDSVAS 07-04 12:39
PROVIDERS: ATTEND Radiology Vascular & Interventional Radiology
DX: S32.010A Wedge compression fracture of first lumbar vertebra, initial encounter for closed fracture (principal); I10 Essential (primary) hypertension; K59.00 Constipation, unspecified; W19.XXXA Unspecified fall, initial encounter; Z85.038 Personal history of other malignant neoplasm of large intestine; Z96.651 Presence of right artificial knee joint; Z79.82 Long term (current) use of aspirin
CPT/HCPCS: 22514; 36415 ×2; 80048; 80053; 85025; 85027; 85610; 85730; 97161; 97530; 99152; C1713; G8978; G8979; J1644; J2250; J2405; J3010; J7030; Q9967